=== PATIENT | female | born 1975 | race Caucasian/White ===

== ENCOUNTER 2017-03-13 09:24 | Emergency (ER) | payer MEDICAID, OTHER ==
[2017-03-13 09:43] VITALS: BP 128/95
--- NOTE | 2017-03-13 10:26 | UC ---
Respiratory Complaint HPI - HPI Summary HPI Summary: SEVERAL WEEKS OF CHEST CONGESTION. LAST NIGHT THOUGHT SHE WAS FEVERISH BUT DID NOT CHECK HER TEMP. HAS A GUDINO AND OVERALL MALAISE. COUGH IS MILD. FEELS LIKE HER CHEST RATTLES AT NIGHT. - History of Current Complaint Chief Complaint: UCGeneralIllness Stated Complaint: CONGESTION BACK PAIN Time Seen by Provider: 03/13/17 10:07 Hx Obtained From: Patient Hx Last Menstrual Period: 03/04/17 Onset/Duration: Gradual Onset, Lasting Weeks, Still Present Timing: Constant Severity Initially: Moderate Severity Currently: Moderate Pain Intensity: 6 Pain Scale Used: 0-10 Numeric Character: Cough: Nonproductive Aggravating Factors: Nothing Alleviating Factors: Nothing Associated Signs And Symptoms: Positive: Fever, URI, Nasal Congestion - Allergies/Home Medications Allergies/Adverse Reactions: Allergies Allergy/AdvReac Type Severity Reaction Status Date / Time No Known Allergies Allergy Verified 03/13/17 09:35 PMH/Surg Hx/FS Hx/Imm Hx Previously Healthy: Yes - Surgical History Surgical History: Yes Surgery Procedure, Year, and Place: appendix 1986 - Family History Known Family History: Negative: Hypertension - Social History Alcohol Use: Rare Substance Use Type: None Smoking Status (MU): Never Smoked Tobacco Review of Systems Constitutional: Fever, Chills, Fatigue ENT: Sore Throat, Nasal Discharge Respiratory: Cough Cardiovascular: Negative Gastrointestinal: Negative Neurological: Headache All Other Systems Reviewed And Are Negative: Yes Physical Exam Triage Information Reviewed: Yes Appearance: Well-Appearing, No Pain Distress, Well-Nourished Vital Signs: Initial Vital Signs Temp 99.2 F 03/13/17 09:35 Pulse 79 03/13/17 09:35 Resp 20 03/13/17 09:35 BP 128/95 03/13/17 09:35 Pulse Ox 98 03/13/17 09:35 Vital Signs Reviewed: Yes Eyes: Positive: Conjunctiva Clear ENT: Positive: Hearing grossly normal, Pharynx normal, TMs normal Neck: Positive: Supple, Nontender, No Lymphadenopathy Respiratory Exam: Normal Cardiovascular Exam: Normal Abdomen Description: Positive: Soft Musculoskeletal: Positive: No Edema Neurological: Positive: Alert Psychological: Positive: Age Appropriate Behavior Skin: Negative: rashes UC Diagnostic Evaluation - Laboratory O2 Sat by Pulse Oximetry: 98 Respiratory Course/Dx - Differential Dx/Diagnosis Provider Diagnoses: ACUTE URI Discharge - Discharge Plan Condition: Stable Disposition: HOME Prescriptions: Azithromycin [Azithromycin 500 MG TAB] 500 mg PO DAILY #5 tab Patient Education Materials: Upper Respiratory Infection (ED) Referrals: Marilia Hays MD [Primary Care Provider] - If Needed Additional Instructions: YOUR SYMPTOMS MAY BE VIRALLY MEDIATED BUT GIVEN THE LENGTH OF TIME YOU HAVE BEEN ILL WE WILL COVER YOU WITH ANTIBIOTICS. IF YOU START THE MEDICINE BE SURE TO TAKE IT FOR THE FULL COURSE. REST, HYDRATE, OTC MEDS NEEDED. SEEK FOLLOW- UP WITH YOUR PCP IF YOU ARE NOT IMPROVING OVER THE NEXT 1-2 WEEKS.
== END 2017-03-13 10:37 | disposition home or self-care (01) ==
LOC: UCEAST 09:24
DX: J06.9 Acute upper respiratory infection, unspecified (principal)
CPT/HCPCS: 99212; G0463

== ENCOUNTER 2017-07-22 06:20 | Emergency (ER) | payer MEDICAID, OTHER ==
[2017-07-22] MEDS ORDERED: Ketorolac INJ* 30 MG/ML 1 ML VIAL IV PUSH ONE (06:56)
[2017-07-22] MEDS ORDERED: Diazepam SYRINGE* 5 MG/ML 2 ML SYRINGE (10 MG total) IV ONE (06:56)
--- NOTE | 2017-07-22 07:09 | ED ---
Complex/Multi-Sys Presentation - HPI Summary HPI Summary: Patient is a 42-year-old female who presents emergency department for left upper back pain and shortness of breath that started this morning. Patient states she woke up early this morning to use the restroom when she developed a sharp pain to her left shoulder blade. Pain is worse with movement. Patient states she feel short of breath secondary to pain. She denies any injury, heavy lifting or recent falls. She denies past medical history. Does not take any medications on a daily basis. Patient's denies leg swelling, recent surgeries, long car trips or plane rides. Symptoms are moderate in severity. Denies recent illness, cough, fevers, abdominal pain, urinary symptoms, vomiting , diarrhea. - History Of Current Complaint Chief Complaint: EDFlankPain Time Seen by Provider: 07/22/17 06:48 Hx Obtained From: Patient - Allergies/Home Medications Allergies/Adverse Reactions: Allergies Allergy/AdvReac Type Severity Reaction Status Date / Time No Known Allergies Allergy Verified 07/22/17 06:25 PMH/Surg Hx/FS Hx/Imm Hx Previously Healthy: Yes Endocrine/Hematology History: Denies: Hx Diabetes, Hx Thyroid Disease Cardiovascular History: Denies: Hx Hypertension, Hx Pacemaker/ICD Respiratory History: Denies: Hx Asthma, Hx Chronic Obstructive Pulmonary Disease (COPD) GI History: Denies: Hx Ulcer Sensory History: Denies: Hx Hearing Aid Psychiatric History: Denies: Hx Panic Disorder - Surgical History Surgery Procedure, Year, and Place: appendix 1986 - Immunization History Date of Tetanus Vaccine: Unk Date of Influenza Vaccine: None Infectious Disease History: No Infectious Disease History: Denies: Hx Clostridium Difficile, Hx Hepatitis, Hx Human Immunodeficiency Virus (HIV), Hx of Known/Suspected MRSA, Hx Shingles, Hx Tuberculosis, Hx Known/ Suspected VRE, Hx Known/Suspected VRSA, Traveled Outside the [place] in Last 30 Days - Family History Known Family History: Negative: Hypertension - Social History Occupation: Unemployed Lives: With Family Alcohol Use: Rare Substance Use Type: Reports: None Smoking Status (MU): Never Smoked Tobacco Review of Systems Constitutional: Negative Negative: Fever, Chills Eyes: Negative ENT: Negative Cardiovascular: Negative Negative: Palpitations, Chest Pain Positive: Shortness Of Breath. Negative: Cough Negative: Abdominal Pain, Vomiting, Diarrhea Genitourinary: Negative Positive: Other - Left upper back pain Skin: Negative Neurological: Negative All Other Systems Reviewed And Are Negative: Yes Physical Exam Triage Information Reviewed: Yes Vital Signs On Initial Exam: Initial Vitals Temp Pulse Resp BP Pulse Ox 98.5 F 74 20 111/68 99 07/22/17 06:22 07/22/17 06:22 07/22/17 06:22 07/22/17 06:22 07/22/17 06:22 Vital Signs Reviewed: Yes Appearance: Positive: Pain Distress - Pt. sitting on bed holding her left arm. Appears in pain but nontoxic. Family member present. Skin: Positive: Warm, Dry Head/Face: Positive: Normal Head/Face Inspection Eyes: Positive: Normal Neck: Positive: Supple, Nontender. Negative: Nuchal Rigidity Respiratory/Lung Sounds: Positive: Clear to Auscultation, Breath Sounds Present Cardiovascular: Positive: Normal, RRR Musculoskeletal: Positive: Other - Significant pain to palpation of left scapular region. No edema, ecchymosis, induration or sign of trauma. 5/5 strength in bilateral UEs. Left arm is neurovascularly intact. Neurological: Positive: Normal, CN Intact II-III Diagnostics - Vital Signs Vital Signs Temp Pulse Resp BP Pulse Ox 07/22/17 06:22 98.5 F 74 20 111/68 99 - Laboratory Result Diagrams: 07/22/17 07:03 07/22/17 07:03 Lab Statement: Any lab studies that have been ordered have been reviewed, and results considered in the medical decision making process. Complex Multi-Symp Course/Dx Course Of Treatment: Pt. presenting with acute onset up left upper back pain and SOB. She is afebrile with stable vital signs. O2 saturation is 99% on RA which is normal. Her pain is reproducible. Suspect muscle spasm but will obtian labs and cxr to r/o other etiologies. Will give pt. IV toradol and valium. CBC is unremarkable. CMP is unremarkable other than mildly elevated ddimer of 233. Will go ahead and obtain CTA to r/o dissection, PE. ECG done at 0857 shows a sinus rhythm of 61 bpm, normal axis, appropriate intervals, no ST elevation or depression. CTA reading per radiology: IMPRESSION: 1. No evidence for pulmonary embolism. 2. Mild cardiomegaly. 3. 2.9 cm maximum dimension hypodense lesion at the RIGHT hepatic lobe increased in size. from 1.4 cm maximum dimension on the remote September 05, 2009 exam is relative low suspicion. likely representing an incidental hemangioma. Consider nonemergent ultrasound follow-up. for further characterization. On re-exam pt. is resting comfortably and feeling moderate better after medication. Suspect muscle spasm. Results were discussed. She was informed of liver mass and will f.u with her PCP for further evaluation. Will rx a few days of valium. Advised to take a NSAID as well. To apply warm compress. Gentle massage. Close f.u with PCP. To return to ER if symptoms change or worsen. Pt. understands and agrees with plan. - Diagnoses Differential Diagnoses/HQI/PQRI: Other - muscle spasm/strain, dissection, PE Provider Diagnoses: Muscle spasm Discharge - Sign-Out/Discharge Documenting (check all that apply): Discharge/Admit/Transfer - Discharge Plan Condition: Good Disposition: HOME Prescriptions: diazePAM [Valium] 2 mg PO TID #9 tablet MDD 3 tablets Patient Education Materials: Muscle Spasm (ED) Forms: *Work Release Referrals: Marilia Hays MD [Primary Care Provider] - Additional Instructions: Schedule a follow up appointment with your PCP Valium as directed for muscle relaxation NSAIDS as directed for pain Gentle massage Apply warm compress to back Return to ER if symptoms change or worsen - Billing Disposition and Condition Condition: GOOD Disposition: HOME
[2017-07-22 07:25] LABS: ABS Basophils 0 10^3/ul (0-0.2); ABS Eosinophils 0.2 10^3/ul (0-0.6); ABS Lymphocytes 1.4 10^3/ul (1.0-4.8); ABS Monocytes 0.3 10^3/ul (0-0.8); ABS Neutrophils 2.6 10^3/ul (1.5-7.7); ABS Nucleated RBC 0 10^3/ul; Eosinophil % 3.7 % (0-6); Hematocrit 43 % (35-47); Hemoglobin 14.5 g/dl (12.0-16.0); Mean Corpuscular HGB Conc 34 g/dl (31-36); Mean Corpuscular Hemoglobin 31 pg (27-31); Mean Corpuscular Volume 90 fL (80-97); Mean Platelet Volume 9.3 um3 (7.4-10.4); Nucleated Red Blood Cells % 0; Platelet Count 226 10^3/ul (150-450); Red Blood Count 4.71 10^6/ul (4.0-5.4); Red Cell Distribution Width 13 % (10.5-15); White Blood Count 4.4 10^3/ul (3.5-10.8)
[2017-07-22 07:47] LABS: EGFR Non-African American 80.6 (>60)
[2017-07-22] MEDS ORDERED: Iohexol 350* (CONTRAST) 500 ML MDV IV ONE (08:17)
--- NOTE | 2017-07-22 08:38 | RAD ---
INDICATION: Shortness of breath. Elevated d-dimer. Back and LEFT flank pain. COMPARISON: Chest radiograph of the same date. September 05, [address] TECHNIQUE: Multidetector CT images were obtained from the lung apices to the upper abdomen with 78 mL Omnipaque 350 IV contrast. Pulmonary angiogram protocol. Multiplanar reformation including with maximum intensity projection. REPORT: Respiratory motion and minimal dependent atelectasis. Negative for pleural effusion or pneumothorax. Negative for thoracic lymphadenopathy. Mild cardiomegaly. Negative for pericardial effusion. No filling defects are identified from the main to the subsegmental pulmonary arteries to indicate presence of a pulmonary embolism. Images through the upper abdomen are remarkable for a 2.6 x 2.9 cm hypodense but denser than water lesion at the RIGHT hepatic lobe increased from 1.0 x 1.4 cm on the 2010 exam. Negative for biliary dilatation. Negative for hydronephrosis. Negative for ascites within the [id number]. Negative for upper abdominal lymphadenopathy. IMPRESSION: 1. No evidence for pulmonary embolism. 2. Mild cardiomegaly. 3. 2.9 cm maximum dimension hypodense lesion at the RIGHT hepatic lobe increased in size from 1.4 cm maximum dimension on the remote September 05, 2009 exam is relative low suspicion likely representing an incidental hemangioma. Consider nonemergent ultrasound follow-up for further characterization.
--- NOTE | 2017-07-22 08:55 | RAD ---
Indication: Shortness of breath. Back and flank pain. Comparison: CT of the same date and April 29, 2013 chest radiograph. Technique: Upright AP 0815 hours Report: Clear lungs and pleural spaces. Negative for pneumothorax. The heart, pulmonary vasculature, and mediastinal contours are unremarkable. Unremarkable osseous structures and soft tissue contours. IMPRESSION: No evidence for acute intrathoracic disease.
[2017-07-22 09:53] VITALS: BP 115/80
== END 2017-07-22 09:52 | disposition home or self-care (01) ==
LOC: ED 06:20
DX: M62.830 Muscle spasm of back (principal); R06.02 Shortness of breath; I51.7 Cardiomegaly; K76.9 Liver disease, unspecified
CPT/HCPCS: 36415; 71045; 71275; 80053; 83690; 84484; 84702; 85025; 85379; 93005; 96374; 96375; 99283; J1885; J3360; Q9967

== ENCOUNTER 2017-08-14 07:02 | Emergency (ER) | payer OTHER ==
[2017-08-14 07:22] VITALS: BP 120/83
[2017-08-14] MEDS ORDERED: Ketorolac INJ* 60 MG/2 ML VIAL IM ONE (08:03)
--- NOTE | 2017-08-14 08:52 | RAD ---
HISTORY: Acute back pain radiating down right leg COMPARISONS: MRI dated April 18, 2011 TECHNIQUE: Multiple contiguous axial CT scans were obtained of the lumbar spine without intravenous contrast, with coronal and sagittal multiplanar reformations. FINDINGS: SPINAL CANAL: Evaluation of the central canal is limited on CT technique; however, there is no obvious canalicular mass or epidural hemorrhage. ALIGNMENT: The alignment is normal. VERTEBRAL BODIES: The vertebral bodies are preserved in height. The bones are normal in attenuation. JOINTS: There is no subluxation or dislocation. MUSCULATURE: Unremarkable INTERVERTEBRAL DISCS: There is mild diffuse loss of intervertebral disc height throughout the spine. AXIAL IMAGES: T12-L1: There is no osseous neural foraminal narrowing or central canal stenosis. L1-L2: There is no osseous neural foraminal narrowing or central canal stenosis. L2-L3: There is no osseous neural foraminal narrowing or central canal stenosis. L3-L4: There is no osseous neural foraminal narrowing or central canal stenosis. L4-L5: There is no osseous neural foraminal narrowing or central canal stenosis. L5-S1: There is no osseous neural foraminal narrowing or central canal stenosis. SOFT TISSUES: The visualized soft tissues of the abdomen are unremarkable. OTHER: None IMPRESSION: MILD DEGENERATIVE DISC DISEASE. NO OSSEOUS NEURAL FORAMINAL NARROWING OR CENTRAL CANAL STENOSIS.
--- NOTE | 2017-08-14 08:54 | RAD ---
Indication: Upper extremity pain and mid thoracic pain. CT of the thoracic spine was obtained in the axial plane. Sagittal and coronal reconstructed images were obtained. The vertebral bodies appear normal in height. No evidence of compression fracture is noted. There is disc space narrowing at C4-C5, T5-T6 and T6-T7 as well as T9-T10 and T10-T11. No focal protrusion is noted. No fracture is identified. No retroperitoneal adenopathy is noted. The visualized kidneys and aorta are grossly unremarkable. The lung prather demonstrate dependent changes. There may be a nodule in the right lower lobe posteriorly. This is incompletely imaged. IMPRESSION: No fracture of the thoracic spine is noted.
[2017-08-14 10:44] LABS: ABS Basophils 0 10^3/ul (0-0.2); ABS Eosinophils 0.3 10^3/ul (0-0.6); ABS Lymphocytes 1.7 10^3/ul (1.0-4.8); ABS Monocytes 0.3 10^3/ul (0-0.8); ABS Neutrophils 2.7 10^3/ul (1.5-7.7); ABS Nucleated RBC 0 10^3/ul; Hematocrit 41 % (35-47); Hemoglobin 13.5 g/dl (12.0-16.0); Lymphocyte % 33.9 % (25-47); Mean Corpuscular HGB Conc 33 g/dl (31-36); Mean Corpuscular Hemoglobin 30 pg (27-31); Mean Corpuscular Volume 91 fL (80-97); Mean Platelet Volume 9.4 um3 (7.4-10.4); Nucleated Red Blood Cells % 0.1; Platelet Count 192 10^3/ul (150-450); Red Blood Count 4.47 10^6/ul (4.0-5.4); Red Cell Distribution Width 12 % (10.5-15)
[2017-08-14 11:24] LABS: EGFR Non-African American 85.6 (>60)
--- NOTE | 2017-08-14 12:16 | UC ---
Marlen Frias Emily, scribed for Asmita Reyes MD on 08/14/17 at 0737 . Back Pain HPI - HPI Summary HPI Summary: This patient is a 42 year old F presenting to convenient care with a chief complaint of sudden, sharp upper lumbar / lower thoracic back pain, radiating to the R leg that began on 08/11/2017. The patient rates the pain 9/10 in severity. Symptoms aggravated by bending or twisting in any direction. Symptoms alleviated by sitting in one position without moving. Patient denies b/b/ leak, dysuria, hematuria. Denies p/d/w. No GI problems (hx of "gastritis" but has resolved since discontinuing tomatoes). No rash. Denies recent illness, no fever / chills. Pt reports taking backaid max medication yesterday night, with no relief of symptoms. Taking acetaminophen, last dose last was last evening. No nsaids. Appetite ok. Works at a job, sitting in a chair. Denies hx of similar pain. Note - last month was seen in ED d/t L upper back spasm, reports not related to current sx. PCP - Dr. Hays - History of Current Complaint Chief Complaint: UCBackPain Stated Complaint: BACK PAIN Time Seen by Provider: 08/14/17 07:23 Hx Obtained From: Patient Hx Last Menstrual Period: 08/07/17 Onset/Duration: Sudden Onset, Lasting Days, Still Present Timing: Constant, Lasting Days Severity Initially: Severe Severity Currently: Severe Pain Intensity: 9 Pain Scale Used: 0-10 Numeric Back Pain: Is Discrete @ - upper lumbar lower thoracic Character: Sharp Aggravating Factor(s): Bending Alleviating Factor(s): Nothing Associated Signs And Symptoms: Positive: Other - Negative urinary symptoms, bowel symptoms, and tingling - Allergies/Home Medications Allergies/Adverse Reactions: Allergies Allergy/AdvReac Type Severity Reaction Status Date / Time cinnamon Allergy Shortness Verified 08/14/17 07:17 of Breath PMH/Surg Hx/FS Hx/Imm Hx Previously Healthy: No - seen in ED for R muscle spasm Endocrine History: Other Other Endocrine History: Negative diabetes Cardiovascular History: Other Other Cardiovascular History: Negative HTN GI/ History: Other Other GI/ History: Gastritis - Surgical History Surgical History: Yes Surgery Procedure, Year, and Place: appendix 1986. tubal ligation - Family History Known Family History: Negative: Hypertension - Social History Occupation: Employed Full-time Lives: With Family Alcohol Use: None Substance Use Type: None Smoking Status (MU): Never Smoked Tobacco Review of Systems Constitutional: Negative Skin: Negative Eyes: Negative ENT: Negative Respiratory: Negative Cardiovascular: Negative Gastrointestinal: Negative Genitourinary: Negative Motor: Other - see hpi Neurovascular: Other - see hpi Musculoskeletal: Other: - back pain see hpi Neurological: Other - see hpi Psychological: Negative Is Patient Immunocompromised?: No All Other Systems Reviewed And Are Negative: Yes Physical Exam - Summary Physical Exam Summary: Appearance: Well-Nourished Eye Exam: Normal ENT Exam: Normal Respiratory Exam: Normal, no dyspnea, no tachypnea, normal respiratory rate Cardiovascular Exam: Normal Cardiovascular: Heart rate regular, good general skin color, good capillary refill Abdominal Exam: Normal Abdomen Description: Nontender, No Organomegaly, Soft Bowel Sounds: Present Musculoskeletal: Strength Intact, upper lumbar lower thoracic tenderness Neurological Exam: Normal: nonfocal, grossly intact Psychological Exam: Normal: conversing easily and appropriately Skin Exam: Normal: no visible or reported rash Triage Information Reviewed: Yes Appearance: Well-Nourished Vital Signs: Initial Vital Signs Temp 98 F 08/14/17 07:18 Pulse 75 08/14/17 07:18 Resp 18 08/14/17 07:18 BP 120/83 08/14/17 07:18 Pulse Ox 98 08/14/17 07:18 Vital Signs Reviewed: Yes Eye Exam: Normal - grossly normal ENT Exam: Normal Neck exam: Normal Neck: Positive: Supple, Nontender Respiratory Exam: Normal Respiratory: Positive: Chest non-tender, Lungs clear, Normal breath sounds, No respiratory distress Cardiovascular Exam: Normal Cardiovascular: Positive: RRR, No Murmur, Pulses Normal, Brisk Capillary Refill Abdominal Exam: Other - soft nd, + nabs. No abd tenderness elicited, however + pain in R back with pressure upper abd. Bowel Sounds: Positive: Present Musculoskeletal Exam: Other - + tender mid-lower back + spasm + tender upper lumbar region (mid and R lat spine), no crepitus, no rash. Neurological Exam: Other - Brach / pat DTRs 2+ equal bilat. No b/b c/o's. Distal sens LT present, gait slow (c/o pain) but steady Denies p/d/w Neurological: Positive: Muscle Tone Normal Psychological Exam: Normal - conversing easily and appropriately Skin Exam: Normal - no visible or reported Diagnostics - Radiology Lumbar Spine CT Radiology Interpretation Completed By: Radiologist - Lumbar CT reveals, per radiologist, mild degenerative disc disease. No osseous neural foraminal narrowing or central canal stenosis. Physician has reviewed this radiology report. Thoracic Spine CT Radiology Interpretation Completed By: Radiologist - Thoracic CT reveals, per radiologist, no fracture of the thoracic spine is noted. Physician has reviewed this radiology report. Back Pain Course/Dx - Course Course Of Treatment: 08:15 - no new issues, en route to CT. Urine dip reviewed. ISTOP reference #: [id number]. Reviewed CT reports with pt. Reviewed need for f/u pcp. Blood work obtained, d/w pt. Questions as posed answered to the best of my ability. Aware to seek medical treatment for any worse or new problems, or not improving. - Differential Dx/Diagnosis Provider Diagnoses: Back pain, acute Discharge - Sign-Out/Discharge Documenting (check all that apply): Discharge/Admit/Transfer - Discharge Plan Condition: Stable Disposition: HOME Prescriptions: Diazepam TAB(*) [Valium TAB(*)] 5 mg PO TID PRN #9 tab MDD 3 PRN Reason: Spasms Naproxen [Naproxen Enteric Coated 500 MG TAB] 500 mg PO BID PRN #30 tablet.dr HERNANDEZ Reason: Pain Patient Education Materials: Acute Low Back Pain (ED), Lumbar Radiculopathy (ED ) Forms: *Work Release Referrals: Marilia Hays MD [Primary Care Provider] - Additional Instructions: Follow up with Dr. Hays - follow up in the next 2 days for recheck. Seek medical attention (Emerg Dept) for worse or new problems in the meantime. - Billing Disposition and Condition Condition: STABLE Disposition: HOME The documentation as recorded by the Marlen velasco Emily accurately reflects the service I personally performed and the decisions made by me, Asmita Reyes MD.
== END 2017-08-14 09:25 | disposition home or self-care (01) ==
LOC: UCEAST 07:02
DX: M54.5 Low back pain (principal); M51.36 Other intervertebral disc degeneration, lumbar region
CPT/HCPCS: 36415; 72128; 72131; 80048; 81003; 84702; 85025; 85652; 86140; 96372; 99212; G0463; J1885

== ENCOUNTER 2018-03-11 05:08 | Emergency (ER) | payer BC, OTHER ==
--- NOTE | 2018-03-11 05:50 | ED ---
Abdominal Pain/Female - HPI Summary HPI Summary: Pt. is a 43 y.o female who presents to the ER for lower abd. pain x 4 days. Pt. states she has a hx of ovarian cyst and pain today is similar. Pt. states pain became worse last night after intercourse. Pt. also notes back pain and muscle spasms that she has had in the past. Otherwise denies past medical hx. Denies associated sxs of fever, chills, N/V/D/C, dysuria, vaginal discharge or bleeding. Sxs are moderate in severity. No current modifying factors. - History of Current Complaint Chief Complaint: EDAbdPain Stated Complaint: ABD PAIN Time Seen by Provider: 03/11/18 05:34 Hx Obtained From: Patient Hx Last Menstrual Period: 08/07/17 Pain Intensity: 10 Allergies/Adverse Reactions: Allergies Allergy/AdvReac Type Severity Reaction Status Date / Time cinnamon Allergy Shortness Verified 03/11/18 05:21 of Breath tomato Allergy Vomiting Verified 03/11/18 05:21 PMH/Surg Hx/FS Hx/Imm Hx Previously Healthy: Yes Endocrine/Hematology History: Denies: Hx Diabetes, Hx Thyroid Disease Cardiovascular History: Reports: Other Cardiovascular Problems/Disorders - vericose veins Denies: Hx Hypertension, Hx Pacemaker/ICD Respiratory History: Denies: Hx Asthma, Hx Chronic Obstructive Pulmonary Disease (COPD) GI History: Denies: Hx Ulcer History: Denies: Hx Renal Disease Sensory History: Denies: Hx Hearing Aid Psychiatric History: Denies: Hx Panic Disorder - Surgical History Surgery Procedure, Year, and Place: appendix 1986. tubal ligation - Immunization History Date of Tetanus Vaccine: Unk Date of Influenza Vaccine: None Infectious Disease History: No Infectious Disease History: Denies: Hx Clostridium Difficile, Hx Hepatitis, Hx Human Immunodeficiency Virus (HIV), Hx of Known/Suspected MRSA, Hx Shingles, Hx Tuberculosis, Hx Known/ Suspected VRE, Hx Known/Suspected VRSA, Traveled Outside the [place] in Last 30 Days - Family History Known Family History: Positive: Non-Contributory Negative: Hypertension - Social History Occupation: Employed Full-time Lives: With Family Alcohol Use: None Substance Use Type: Reports: None Smoking Status (MU): Never Smoked Tobacco Review of Systems Constitutional: Negative Negative: Fever, Chills Cardiovascular: Negative Respiratory: Negative Positive: Abdominal Pain. Negative: Vomiting, Diarrhea, Nausea Positive: dysuria. Negative: discharge, frequency, flank pain, hematuria Neurological: Negative All Other Systems Reviewed And Are Negative: Yes Physical Exam Triage Information Reviewed: Yes Vital Signs On Initial Exam: Initial Vitals Temp Pulse Resp BP Pulse Ox 98.8 F 74 16 110/74 98 03/11/18 05:19 03/11/18 05:19 03/11/18 05:19 03/11/18 05:19 03/11/18 05:19 Vital Signs Reviewed: Yes Appearance: Positive: Well-Appearing - Pt. lying in bed in NAD. Daughter present. Skin: Positive: Warm, Dry Head/Face: Positive: Normal Head/Face Inspection Eyes: Positive: Normal, EOMI Neck: Positive: Supple Respiratory/Lung Sounds: Positive: Clear to Auscultation, Breath Sounds Present Cardiovascular: Positive: Normal, RRR Abdomen Description: Positive: Other: - Abd. is soft with moderate tenderness to the right RLQ, adnexa and suprapubic region. No rebound tenderness or guarding.. Negative: CVA Tenderness (R), CVA Tenderness (L) Musculoskeletal: Positive: Other - Mild pain to palpation diffusely throughout back. No midline tenderness. Neurological: Positive: Normal, CN Intact II-III Psychiatric: Positive: Affect/Mood Appropriate Diagnostics - Vital Signs Vital Signs Temp Pulse Resp BP Pulse Ox 03/11/18 05:35 77 112/65 96 03/11/18 05:34 66 97 03/11/18 05:19 98.8 F 74 16 110/74 98 - Laboratory Result Diagrams: 03/11/18 05:55 03/11/18 05:55 Lab Statement: Any lab studies that have been ordered have been reviewed, and results considered in the medical decision making process. Abdominal Pain Fem Course/Dx - Course Course Of Treatment: Patient presenting for lower abdominal pain she believes is a ruptured ovarian cyst. She has some mild pain to the right lower quadrant subpubic region. History of appendectomy. She is afebrile with stable vital signs. We'll check basic blood work and pelvic ultrasound for further evaluation. Patient was given IV Toradol for pain. Blood work is unremarkable including negative and urinalysis. Patient requesting more pain medication stating that Toradol does not help with the pain. She is given 4 mg of morphine. U/S read per radiology: IMPRESSION: 1. 3.8 CM RIGHT OVARIAN HEMORRHAGIC CYST. 2. SMALL AMOUNT OF FLUID WITHIN THE PELVIC CUL-DE-SAC. THIS MAY BE PHYSIOLOGIC. 3. THE ENDOMETRIAL STRIPE IS SLIGHTLY THICKENED AT 1.5 CM. 4. NO SONOGRAPHIC FEATURES OF TORSION. PLEASE NOTE THAT PARTIAL OR INTERMITTENT TORSION. MAY BE SONOGRAPHICALLY NORMAL. On reexam patient's pain has moderately improved. Results were discussed. Patient requesting a muscle relaxer for back which is helped in the past. We'll prescribe a few days of Ultram and Flexeril. 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 To apply warm compresses. We'll return to the ER for increased pain, fever, vomiting or if concerned. Patient understands and agrees with plan. - Diagnoses Provider Diagnoses: Ovarian cyst, Muscle spasm Discharge - Sign-Out/Discharge Documenting (check all that apply): Patient Departure - Discharge Plan Condition: Improved Disposition: HOME Prescriptions: Cyclobenzaprine TAB* [Flexeril 10 MG TAB*] 10 mg PO TID PRN #9 tab PRN Reason: Spasms traMADol TAB* [Ultram*] 50 mg PO Q8H PRN #9 tab MDD 4 tablets PRN Reason: Pain Patient Education Materials: Ovarian Cyst (ED), Muscle Spasm (ED) Forms: *Work Release Referrals: Marilia Hays MD [Primary Care Provider] - Ruben Newberry MD [Medical Doctor] - Additional Instructions: Schedule a follow up appointment with your STATISTICAL PROGRAMMER Medication as directed Apply warm compresses Return to ER for increased pain, fever, vomiting or if concerned - Billing Disposition and Condition Condition: IMPROVED Disposition: Home
[2018-03-11] MEDS ORDERED: Ketorolac INJ* 30 MG/ML 1 ML VIAL IV PUSH ONE (05:51)
[2018-03-11 06:25] LABS: ABS Basophils 0 10^3/ul (0-0.2); ABS Eosinophils 0.5 10^3/ul (0-0.6); ABS Lymphocytes 1.8 10^3/ul (1.0-4.8); ABS Monocytes 0.4 10^3/ul (0-0.8); ABS Neutrophils 3.2 10^3/ul (1.5-7.7); ABS Nucleated RBC 0 10^3/ul; Eosinophil % 8.4 %; Hematocrit 41 % (35-47); Hemoglobin 13.6 g/dl (12.0-16.0); Lymphocyte % 30.6 %; Mean Corpuscular HGB Conc 33 g/dl (31-36); Mean Corpuscular Hemoglobin 30 pg (27-31); Mean Corpuscular Volume 90 fL (80-97); Mean Platelet Volume 9.4 fL (7.4-10.4); Nucleated Red Blood Cells % 0.1; Platelet Count 218 10^3/ul (150-450); Red Blood Count 4.54 10^6/ul (4.00-5.40); Red Cell Distribution Width 13 % (10.5-15); White Blood Count 5.9 10^3/ul (3.5-10.8)
[2018-03-11 06:40] LABS: Urine Appearance Clear; Urine Bilirubin Negative (Negative); Urine Blood Negative (Negative); Urine Color Straw; Urine Glucose Negative (Negative); Urine Ketones Negative (Negative); Urine Nitrite Negative (Negative); Urine Protein Negative (Negative); Urine Specific Gravity 1.008 (1.010-1.030); Urine Urobilinogen Negative (Negative)
[2018-03-11 06:47] LABS: ALT 11 U/L (7-52); AST 14 U/L (13-39); Albumin 3.9 g/dL (3.2-5.2); Albumin/Globulin Ratio 1.5 (1-3); Alkaline Phosphatase 64 U/L (34-104); Anion Gap 7 mmol/L (2-11); BUN/Creatinine Ratio 17.9 (8-20); Blood Urea Nitrogen 14 mg/dL (6-24); CO2 Carbon Dioxide 27 mmol/L (22-32); Calcium 9.2 mg/dL (8.6-10.3); Chloride 103 mmol/L (101-111); EGFR Non-African American 81.4 (>60); Globulin 2.6 g/dL (2-4); Glucose 101 mg/dL (70-100); Potassium 4.1 mmol/L (3.5-5.0); Sodium 137 mmol/L (135-145); Total Protein 6.5 g/dL (6.4-8.9)
[2018-03-11 06:54] LABS: HCG Pregnancy < 0.60 mIU/mL
[2018-03-11] MEDS ORDERED: Morphine VIAL* 4 MG/ML VIAL (1 ml vial) IV ONE (07:12)
[2018-03-11 09:39] VITALS: BP 127/81
== END 2018-03-11 09:40 | disposition home or self-care (01) ==
LOC: ED 05:08
DX: N83.201 Unspecified ovarian cyst, right side (principal); M62.830 Muscle spasm of back; Z32.02 Encounter for pregnancy test, result negative
CPT/HCPCS: 36415; 76830; 80053; 81003; 84702; 85025; 86140; 96374; 96375; 99283; J1885; J2270

== ENCOUNTER 2019-06-12 07:56 | Day surgery (SDC) | payer BC ==
[~2019-06-12 07:56] MED LIST: Buffered Lidocaine 1% SYRIN* 1 ML/SYRINGE INTRADERM ONE; Famotidine IV* 10 MG/ML 2 ML (20 mg) IV ONE; Gabapentin CAP(*) 300 MG PO ONE; Lactated Ringers 1000 ML Bag* 1,000 ML IV SCH
[2019-06-12] MEDS ORDERED: Dexamethasone IV* 4 MG/ML 1 ML (4 MG) ONE (08:27)
[2019-06-12] MEDS ORDERED: Ondansetron INJ* 2 MG/ML VIAL ONE ×2 (08:27→11:54)
[2019-06-12] MEDS ORDERED: Heparin VIAL(*) 5000 UNITS/ML VIAL (FIVE THOUSAND) ONE (08:27)
[2019-06-12] MEDS ORDERED: Gabapentin CAP(*) 300 MG ONE (08:27)
[2019-06-12] MEDS ORDERED: ceFAZolin 2 GM PREMIX in ORs 2 GM/50 ML BAG ONE (08:28)
[2019-06-12] MEDS ORDERED: Famotidine IV* 10 MG/ML 2 ML (20 mg) ONE (08:28)
[2019-06-12] MEDS ORDERED: Scopolamine 1.5 mg* PATCH ONE (08:28)
[2019-06-12] MEDS ORDERED: fentaNYL* 50 MCG/ML 2 ML VIAL (100 MCG VIAL) ONE ×2 (09:57→14:06)
[2019-06-12] MEDS ORDERED: Midazolam* 1 MG/ML 2 ML VIAL (2 MG) ONE (09:57)
[2019-06-12] MEDS ORDERED: Lidocaine 1% w EPI 1:100,000* MDV 20 ML VIAL ONE (10:31)
[2019-06-12] MEDS ORDERED: Bupivacaine 0.25% SDV* 30 ML ONE (10:31)
[2019-06-12] MEDS ORDERED: Rocuronium* 10 MG/ML VIAL ONE (11:07)
[2019-06-12] MEDS ORDERED: HYDROmorphone INJ1* 1 MG/ML SYRINGE ONE (11:37)
[2019-06-12] MEDS ORDERED: Lidocaine 2% PF * 5 ML VIAL ONE (11:54)
[2019-06-12] MEDS ORDERED: Propofol* 10 MG/ML 20 ML BTL ONE ×2 (11:54→13:55)
[2019-06-12] MEDS ORDERED: Acetaminophen IV 1GM/100ML * 100 ML ONE (11:54)
[2019-06-12] MEDS ORDERED: fentaNYL* 50 MCG/ML 2 ML VIAL (100 MCG VIAL) IV PRN (11:56)
[2019-06-12] MEDS ORDERED: diPHENhydraMINE IV* 50 MG/ML 1 ml VIAL (BENADRYL) IV PRN (11:56)
[2019-06-12] MEDS ORDERED: Naloxone* 0.4 MG/ML 1 ML VIAL IV PRN (11:56)
[2019-06-12] MEDS ORDERED: Ondansetron INJ* 2 MG/ML VIAL IV PRN (11:56)
[2019-06-12] MEDS ORDERED: oxyCODONE TAB* 5 MG TAB PO PRN (11:56)
[2019-06-12] MEDS ORDERED: DiMENhydriNATE IV* 50 MG/ML VIAL IV PUSH PRN (11:56)
[2019-06-12 15:59] VITALS: BP 134/96
[2019-06-15] MEDS ORDERED: Scopolamine PATCH Remove* 1 NOTE MISC PATCH OFF ONE (11:58)
== END 2019-06-12 15:50 | disposition home or self-care (01) ==
LOC: OR 07:56
PROVIDERS: ATTEND Plastic Surgery
DX: N62 Hypertrophy of breast (principal); E66.9 Obesity, unspecified; M54.2 Cervicalgia; M54.89 Other dorsalgia; Z68.33 Body mass index [BMI] 33.0-33.9, adult; Z80.3 Family history of malignant neoplasm of breast
CPT/HCPCS: 88305; 88307; A9270-GY; J0690; J1100; J1170; J1644; J2250; J2405; J2704; J3010; J3490